=== PATIENT | female | born 1995 | race Caucasian/White ===

== ENCOUNTER 2016-09-08 10:46 | Emergency (ER) | payer OTHER ==
[~2016-09-08] VITALS: Ht 165.1 cm; Wt 56.8 kg
[~2016-09-08 10:46] MED LIST: EPIN0.3P2 IM; HYDR-700 PO; NORG1TAB15 PO; PRED20TA PO
--- OUTSIDE RECORDS SUMMARY | 2016-09-08 10:50 | XMS REPORT | Summary of Care ---
Author Author Kalyani Serrano M.D. Organization Unknown Address Unknown Phone Unavailable Care Team Providers Care Building Construction Estimator Name Role Phone Kalyani Serrano M.D. Unavailable Unavailable Natalia Harley Unavailable Unavailable Functional Status Name Dates Details Functional status health issues are not documented Status: Name Dates Details Cognitive status health issues are not documented Status: Problems Name Dates Details Urticaria, chronic (708.8, L50.8) Status: Active Allergic rhinitis due to other allergen (477.8, J30.89) Status: Active Allergic rhinitis due to pollen (477.0, J30.1) Status: Active Exercise-induced bronchospasm (493.81, J45.990) Status: Active Medications Name Dates Details Zyrtec 10 MG TABS Refills: 0 Active Albuterol Sulfate (2.5 MG/3ML) 0.083% Inhalation Nebulization Solution Refills: 0 Active Tri-Sprintec 0.18/0.215/0.25 MG-35 MCG Oral Tablet TAKE 1 TABLET DAILY. Refills: 0 Serrano M.D., Kalyani Start 27-Feb-2016 Active RaNITidine HCl - 150 MG Oral Tablet TAKE 1 TABLET DAILY NEEDED. Refills: 0 Serrano M.D., Kalyani Start 27-Feb-2016 Active Fluticasone Propionate 50 MCG/ACT Nasal Suspension USE 1 SPRAY IN EACH NOSTRIL ONCE DAILY. Refills: 0 Serrano M.D., Kalyani Start 27-Feb-2016 Active Allergies and Adverse Reactions Name Dates Details Cephalexin CAPS (Allergy) Status: Active Procedures Procedure Dates Details Procedures not documented Immunization Name Dates Details Immunizations not documented Family History Name Dates Details Family history of urticaria (V19.4, Z84.0) Status: Active Family history of asthma (V17.5, Z82.5) Status: Active Family history of eczema (V19.4, Z84.0) Status: Active Social History Name Dates Details - Status: Name Dates Details Never smoker Vital Signs Date Test Result Details 27-Feb-2016 14:28 BP Systolic 111 mm[Hg] Status: Comments: Location: ; Position: BP Diastolic 66 mm[Hg] Status: Comments: Location: ; Position: Temperature 98.1 f Status: Comments: Method: Heart Rate 63 /min Status: Comments: Location: ; Height 65 in Status: Weight 125.7 lb Status: Body Mass Index Calculated 20.92 kg/m2 Status: Body Surface Area Calculated 1.62 m2 Status: Results Date Description Value Details Results not documented Plan of Care Name Dates Details Planned Observations Planned Goals not documented Planned Encounters Appointment; Provider: Kalyani Serrano M.D. On 27-Aug-2016 14:30 Instructions Name Dates Details Instructions not documented Encounters Appointment; Kalyani Serrano M.D. Encounter Diagnosis: Problem not documented On 27-Feb-2016 13:45
[2016-09-08] MEDS ORDERED: methylPREDNISolone 125 MG (Solu-MEDROL) VIAL IM ONE (11:15)
[2016-09-08 11:36] LABS: MEAN CORPUSCULAR HEMOGLOBIN 28.4 PG (26.0-34.0); MEAN CORPUSCULAR HGB CONC 33.6 g/dL (31.0-37.0); MEAN CORPUSCULAR VOLUME 85 FL (80-100); MEAN PLATELET VOLUME 11.6 FL (6.0-9.5); PLATELET COUNT 210 10^3uL (150-450); WHITE BLOOD COUNT 4.66 10^3uL (4.0-11.0)
[2016-09-08 11:47] LABS: BAND NEUTROPHILS % 0 % (0-6); EOSINOPHILS % 7 % (0-4); LYMPHOCYTES # 1.1 #; MONOCYTES # 0.6 #; MONOCYTES % 16 % (3-11); RBC MORPH NORMAL (NORMAL); SEGMENTED NEUTROPHILS % 54 % (51-67); TOTAL CELLS COUNTED 100
[2016-09-08] MEDS ORDERED: PRED20TA PO (13:00)
[2016-09-08 13:07] VITALS: BP 95/57
== END 2016-09-08 13:07 | disposition home or self-care (01) ==
LOC: ED 10:48
DX: J02.8 Acute pharyngitis due to other specified organisms (principal); R21 Rash and other nonspecific skin eruption
CPT/HCPCS: 36415; 85025; 87070; 87651; 96372; 99282; J2930; 99283